=== PATIENT | male | born 1990 | race Caucasian/White ===

== ENCOUNTER 2017-04-28 14:34 | Inpatient (IN) | payer SELFPAY ==
[~2017-04-28] VITALS: Ht 182.9 cm; Wt 81.6 kg
[2017-04-28] MEDS ORDERED: KETOROLAC 30MG/ML VIAL IV STA (20:24)
[2017-04-28] MEDS ORDERED: ONDANSETRON HCL 4MG/2ML VIAL IV STA (20:24)
[2017-04-28] MEDS ORDERED: SODIUM CHLORIDE 0.9% 1,000 ML IV ONE (20:24)
[2017-04-28 20:36] LABS: CLARITY URINE CLEAR (CLEAR); COLOR URINE YELLOW (YELLOW); KETONES URINE 3+ (NEGATIVE); LEUKOCYTE ESTERASE URINE NEGATIVE (NEGATIVE); NITRITE URINE NEGATIVE (NEGATIVE); OCCULT BLOOD URINE NEGATIVE (NEGATIVE); PROTEIN URINE NEGATIVE (NEGATIVE); SPECIFIC GRAVITY URINE 1.022 (1.005-1.030); UROBILINOGEN URINE 0.2 E.U./dL (0.2-1.0)
[2017-04-28 20:38] LABS: HEMATOCRIT. 50.7 % (42.0-52.0); MEAN CORPUSCULAR HEMOGLOBIN 29.3 pg (28.0-32.0); MEAN CORPUSCULAR VOLUME 87.2 fL (80.0-94.0); MEAN PLATELET VOLUME 10.3 fl (7.4-10.4); PLATELET 167 x1000/uL (130-400); RED BLOOD CELL COUNT 5.82 mill/uL (4.7-6.1); RED CELL DISTRIBUTION WIDTH 13.2 % (11.6-14.6)
[2017-04-28 20:39] LABS: INR 1.1; PROTHROMBIN TIME 11.7 sec (9.4-11.6)
[2017-04-28 20:44] LABS: CHLORIDE 103 mEq/L (98-107)
[2017-04-28 20:55] LABS: CARBON DIOXIDE 28 mEq/L (21-32)
[2017-04-28 20:59] LABS: PLATELET ESTIMATE NORMAL
[2017-04-28] MEDS ORDERED: ACETAMINOPHEN 325MG TABLET PO PRN (22:30)
[2017-04-28] MEDS ORDERED: IPRATROPIUM/ALBUTEROL 0.5-3(2.5)MG/3ML NEB INH PRN (22:30)
[2017-04-28] MEDS ORDERED: CLONIDINE 0.1MG TABLET PO PRN (22:30)
[2017-04-28] MEDS ORDERED: LORAZEPAM 2MG/ML CPJ IV PRN (22:30)
[2017-04-28] MEDS ORDERED: DIPHENHYDRAMINE 50MG/ML VIAL IV PRN (22:30)
[2017-04-28] MEDS ORDERED: NA PHOS,M-B/NA PHOS,DI-BA ENEMA 118ML PR PRN (22:30)
[2017-04-28] MEDS ORDERED: GUAIFENESIN 200MG/10ML SUGAR FREE UDC PO PRN (22:30)
[2017-04-28] MEDS ORDERED: DOCUSATE SODIUM 100MG CAPSULE PO PRN (22:30)
[2017-04-28] MEDS ORDERED: MAGNESIUM/ALUMINUM HYDROXIDE/SIMETHICONE 30ML UDC PO PRN (22:30)
[2017-04-28 23:44] LABS: CARBON DIOXIDE 25 mEq/L (21-32); CHLORIDE 106 mEq/L (98-107)
[2017-04-29] MEDS: ONDANSETRON HCL 4MG/2ML VIAL IV PRN ×2 (00:16→09:24)
[2017-04-29] MEDS: MORPHINE SULFATE 4 MG/ML CPJ (NOT FOR IM USE) IV PRN ×3 (00:16→22:10)
[2017-04-29] MEDS ORDERED: METRONIDAZOLE 500 MG PREMIX 100 ML IV NR (03:00)
[2017-04-29] MEDS ORDERED: LEVOFLOXACIN 500MG PREMIX 100 ML IV NR (03:00)
[2017-04-29] MEDS: SODIUM CHLORIDE 0.45% 1,000 ML IV SCH ×2 (03:30→22:13)
[2017-04-29] MEDS: HYDROCODONE/ACETAMINOPHEN 5/325MG TABLET PO PRN ×2 (03:30→11:51)
[2017-04-29 04:54] LABS: HEMATOCRIT. 47.3 % (42.0-52.0); HEMOGLOBIN. 15.9 g/dL (14.0-18.0); MEAN CORPUSCULAR VOLUME 86.1 fL (80.0-94.0); MEAN PLATELET VOLUME 9.6 fl (7.4-10.4); PLATELET 161 x1000/uL (130-400); RED CELL DISTRIBUTION WIDTH 13.3 % (11.6-14.6)
[2017-04-29 05:30] LABS: CARBON DIOXIDE 25 mEq/L (21-32); CHLORIDE 105 mEq/L (98-107); HDL CHOLESTEROL 39 mg/dL (40-59); LDL CHOLESTEROL 53 mg/dL (5-100)
[2017-04-29 06:45] LABS: ATYPICAL LYMPHOCYTES 1
[2017-04-29 06:46] LABS: PLATELET ESTIMATE NORMAL
[2017-04-29 10:30] VITALS: BP 144/70
[2017-04-29] MEDS: ENOXAPARIN 40MG/0.4ML SYR SUBCUT SCH (11:52)
[2017-04-29 12:00] VITALS: BP 133/71
[2017-04-29] MEDS: METRONIDAZOLE 500 MG PREMIX 100 ML IV SCH ×2 (15:15→21:17)
[2017-04-29 16:00] VITALS: BP 130/60
[2017-04-29 20:00] VITALS: BP 130/65
[2017-04-30] VITALS: BP 129/62
[2017-04-30] MEDS: SODIUM CHLORIDE 0.45% 1,000 ML IV SCH ×2 (00:15→11:52)
[2017-04-30 00:28] LABS: *AMPHETAMINES SCREEN URINE NEGATIVE (NEGATIVE); *BARBITURATES SCREEN URINE NEGATIVE (NEGATIVE); *BENZODIAZEPINES SCREEN URINE NEGATIVE (NEGATIVE); *COCAINE SCREEN URINE NEGATIVE (NEGATIVE); CANNABINOID URINE SCREEN NEGATIVE (NEGATIVE); METHADONE URINE SCREEN NEGATIVE (NEGATIVE); OPIATES URINE SCREEN PRESUMTIVE POSITIVE (NEGATIVE); PHENCYCLIDINE URINE SCREEN NEGATIVE (NEGATIVE)
[2017-04-30 04:00] VITALS: BP 130/70
[2017-04-30] MEDS ORDERED: LEVOFLOXACIN 500MG PREMIX 100 ML IV SCH (05:00)
[2017-04-30] MEDS: METRONIDAZOLE 500 MG PREMIX 100 ML IV SCH (05:33)
[2017-04-30 06:58] LABS: BASOPHILS % 0.1 % (0.0-2.0); HEMATOCRIT. 46.4 % (42.0-52.0); LYMPHOCYTES % 7.4 % (20.0-50.0); MEAN CORPUSCULAR HEMOGLOBIN 29.7 pg (28.0-32.0); MEAN CORPUSCULAR VOLUME 86.1 fL (80.0-94.0); MEAN PLATELET VOLUME 9.7 fl (7.4-10.4); MONOCYTES % 8.4 % (2.0-8.0); NEUTROPHILS % 84.1 % (40.0-76.0); PLATELET 143 x1000/uL (130-400); RED BLOOD CELL COUNT 5.39 mill/uL (4.7-6.1); RED CELL DISTRIBUTION WIDTH 13.4 % (11.6-14.6)
[2017-04-30 08:00] VITALS: BP 126/66
[2017-04-30] MEDS: HYDROCODONE/ACETAMINOPHEN 5/325MG TABLET PO PRN (08:00)
[2017-04-30 08:10] LABS: AMYLASE 153 IU/L (25-115); CARBON DIOXIDE 24 mEq/L (21-32); CHLORIDE 103 mEq/L (98-107)
[2017-04-30] MEDS: ENOXAPARIN 40MG/0.4ML SYR SUBCUT SCH (10:47)
[2017-04-30 12:00] VITALS: BP 132/69
[2017-04-30 13:01] VITALS: BP 132/69
== END 2017-04-30 14:00 | disposition home or self-care (01) | DRG 282 ==
LOC: ER 15:45 → 6EST 22:19 → ENRESERV 04-29 08:23
PROVIDERS: ADMIT Internal Medicine; ATTEND Internal Medicine
DX: K85.90 Acute pancreatitis without necrosis or infection, unspecified (principal); I11.0 Hypertensive heart disease with heart failure; I50.9 Heart failure, unspecified; D72.825 Bandemia; E86.0 Dehydration; R73.9 Hyperglycemia, unspecified; R74.0 Nonspecific elevation of levels of transaminase and lactic acid dehydrogenase [LDH]; D72.829 Elevated white blood cell count, unspecified
CPT/HCPCS: 36415; 76700; 80048; 80053; 80061; 80076; 80305; 81003; 82150; 83036; 83690; 85025; 85610; 96365; 96366; 96367; 96375; 96376; 99285; G0482; J1650; J1885; J1956; J2270; J2405; J3490; J7030